=== PATIENT | male | born 1995 | race Caucasian/White ===

== ENCOUNTER 2016-12-21 21:35 | Emergency (ER) | payer BC ==
[2016-12-21 21:42] VITALS: BP 143/86; PULSE 76; RESP 16; TEMP 98.1; O2SAT 96
--- NOTE | 2016-12-21 22:18 | EDPHY ---
H & P Stated Complaint: possible broken nose, elbow to face Time Seen by Provider: 12/21/16 22:05 HPI/ROS: HPI: The patient presents with nose pain and deformity with epistaxis after being hit with an elbow to his nose while playing basketball about 2 hours ago. The bleeding started immediately and was heavy, mostly from his left nares. He used nasal packing with improvement in the bleeding. Noticed that his nose was deformed, thus he came to the emergency room. He has no prior epistaxis or history of facial fracture. He denies any changes in his vision, loss of consciousness, difficulty swallowing. REVIEW OF SYSTEMS Constitutional: No fever, no chills. Skin: No rashes. Neurological: No headache. PMHx: Not on any anticoagulation TRAUMA PHYSICAL General Appearance: Alert, no distress Head: Atraumatic Eyes: Pupils equal, round, reactive ENT, Mouth: Obvious deformity of nose, dried blood in nares bilaterally, no septal hematoma, no active bleeding or source of bleeding appreciated. Neck: trachea midline Respiratory: Breathing comfortably Neurological: A&Ox3 Source: Patient Exam Limitations: No limitations - Personal History Current Tetanus/Diphtheria Vaccine: Yes Current Tetanus Diphtheria and Acellular Pertussis (TDAP): Yes - Medical/Surgical History Hx Asthma: No Hx Chronic Respiratory Disease: No Hx Diabetes: No Hx Cardiac Disease: No Hx Renal Disease: No Hx Cirrhosis: No Hx Alcoholism: No Hx HIV/AIDS: No Hx Splenectomy or Spleen Trauma: No Other PMH: bipolar, appy - Social History Smoking Status: Never smoked Constitutional: Initial Vital Signs Temperature (C) 36.7 C 12/21/16 21:39 Heart Rate 76 12/21/16 21:39 Respiratory Rate 16 12/21/16 21:39 Blood Pressure 143/86 H 12/21/16 21:39 O2 Sat (%) 96 12/21/16 21:39 O2 Delivery Mode Room Air Allergies/Adverse Reactions: No Known Allergies Allergy (Unverified 12/21/16 21:38) Home Medications: Medication Instructions Recorded Lamotrigine 12/21/16 [place] Carbonate ER 12/21/16 Medical Decision Making Differential Diagnosis: This is a 21-year-old healthy man who presents with facial trauma which occurred about 2 hours ago. He was playing basketball and was elbowed in his nose he developed epistaxis immediately and has an obvious deformity to his nose. Differential diagnosis includes nasal bone fracture, nasal contusion, less likely septal hematoma given normal exam. In the emergency room, the patient was given an ice pack. Because of high suspicion for nasal bone fracture with swelling and obvious deformity, I have referred him to [facility]. His epistaxis resolved while in the emergency room probably because of his use of nasal packing. Departure - Departure Disposition: Home, Routine, Self-Care Clinical Impression: Epistaxis Nasal fracture Qualifiers: Encounter type: initial encounter Fracture type: closed Qualified Code(s): S02.2XXA - Fracture of nasal bones, initial encounter for closed fracture Condition: Good Instructions: Nasal Fracture (ED) Additional Instructions: Please continue to use plenty of ice on her nose. You can take ibuprofen or Tylenol for the pain. If it begins to bleed again please hold pressure on the bridge of your nose for about 10 minutes. Call the [facility] Th[facility] doctors office tomorrow morning at 8:30 a.m. and say that you need any ER follow-up appointment. Referrals: Hiral Oliveros MD [Medical Doctor] - As per Instructions
== END 2016-12-21 22:25 | disposition home or self-care (01) ==
DX: S02.2XXA Fracture of nasal bones, initial encounter for closed fracture (principal); R04.0 Epistaxis; W51.XXXA Accidental striking against or bumped into by another person, initial encounter; Y99.8 Other external cause status; Y93.67 Activity, basketball

== ENCOUNTER 2018-01-02 16:10 | Emergency (ER) | payer BC ==
[2018-01-02 16:14] VITALS: BP 140/75
--- NOTE | 2018-01-02 16:44 | EDPHY ---
H & P Stated Complaint: wisdom teeth out today, won't stop bleeding, cant swallow Time Seen by Provider: 01/02/18 16:36 HPI/ROS: CHIEF COMPLAINT: Bleeding HISTORY OF PRESENT ILLNESS: Patient is a 22-year-old man who comes to the emergency department complaining of bleeding from his wisdom teeth which were removed about 2-3 hours ago. He states that the dentist placed gauze but continues to ooze. No other trauma. No fever. No history of bleeding disorders or easy bruising. REVIEW OF SYSTEMS: Constitutional: denies: chills, fever, recent illness, recent injury EENTM: See HPI denies: blurred vision, double vision, nose congestion Respiratory: denies: cough, shortness of breath Cardiac: denies: chest pain, irregular heart rate, lightheadedness, palpitations Gastrointestinal/Abdominal: denies: abdominal pain, diarrhea, nausea, vomiting, blood streaked stools Genitourinary: denies: dysuria, frequency, hematuria, pain Musculoskeletal: denies: joint pain, muscle pain Skin: denies: lesions, rash, jaundice, bruising Neurological: denies: headache, numbness, paresthesia, tingling, dizziness, weakness Hematologic/Lymphatic: denies: blood clots, easy bleeding, easy bruising Immunologic/allergic: denies: HIV/AIDS, transplant EXAM: GENERAL: Well-appearing, well-nourished and in no acute distress. HEAD: Atraumatic, normocephalic. EYES: Pupils equal round and reactive to light, extraocular movements intact, sclera anicteric, conjunctiva are normal. ENT: All 4 wisdom teeth recently removed. Small amount of oozing from mandibular sites. TMs normal, nares patent, oropharynx clear without exudates. Moist mucous membranes. NECK: Normal range of motion, supple without lymphadenopathy or JVD. LUNGS: Breath sounds clear to auscultation bilaterally and equal. No wheezes rales or rhonchi. HEART: Regular rate and rhythm without murmurs, rubs or gallops. ABDOMEN: Soft, nontender, normoactive bowel sounds. No guarding, no rebound. No masses appreciated. BACK: No CVA tenderness, no spinal tenderness, step-offs or deformities EXTREMITIES: Normal range of motion, no pitting or edema. No clubbing or cyanosis. NEUROLOGICAL: Cranial nerves II through XII grossly intact. Normal speech, normal gait. 5/5 strength, normal movement in all extremities, normal sensation PSYCH: Normal mood, normal affect. SKIN: Warm, dry, normal turgor, no visible rashes or lesions. Source: Patient Exam Limitations: No limitations - Personal History Current Tetanus Diphtheria and Acellular Pertussis (TDAP): Yes - Medical/Surgical History Hx Asthma: No Hx Chronic Respiratory Disease: No Hx Diabetes: No Hx Cardiac Disease: No Hx Renal Disease: No Hx Cirrhosis: No Hx Alcoholism: No Hx HIV/AIDS: No Hx Splenectomy or Spleen Trauma: No Other PMH: bipolar, appy, wisdom teeth out - Family History Significant Family History: No pertinent family hx - Social History Smoking Status: Never smoked Alcohol Use: Sober Drug Use: None Constitutional: Initial Vital Signs Temperature (C) 36.7 C 01/02/18 16:11 Heart Rate 69 01/02/18 16:11 Respiratory Rate 20 01/02/18 16:11 Blood Pressure 140/75 H 01/02/18 16:11 O2 Sat (%) 94 01/02/18 16:11 O2 Delivery Mode Room Air Allergies/Adverse Reactions: No Known Allergies Allergy (Verified 01/02/18 16:11) Home Medications: Medication Instructions Recorded Lamotrigine 12/21/16 [place] Carbonate ER 12/21/16 Medical Decision Making ED Course/Re-evaluation: The patient has minor bleeding from recent dental procedure. We packed the lower sites with Surgicel and the last 5 to bite on. It seems to be stopped for now. He understands that this may take some time and may be even replete. I encouraged him to follow up with his dentist. His vital signs are stable. I do not suspect that he lost a significant amount of blood. Differential Diagnosis: Partial list of the Differential diagnosis considered include but were not limited to; postoperative bleeding, and although unlikely based on the history and physical exam, I also considered infection, foreign body. Departure - Departure Disposition: Home, Routine, Self-Care Clinical Impression: Surgical wound hemorrhage after dental procedure Condition: Fair Instructions: Tooth Extraction (DC) Referrals: NONE *PRIMARY CARE P,. [Primary Care Provider] - As per Instructions
== END 2018-01-02 17:08 | disposition home or self-care (01) ==
DX: K91.840 Postprocedural hemorrhage of a digestive system organ or structure following a digestive system procedure (principal)